=== PATIENT | female | born 1980 | race Caucasian/White ===

== ENCOUNTER 2018-06-10 14:46 | Emergency (ER) | payer BC ==
[~2018-06-10] VITALS: Ht 162.6 cm; Wt 55.0 kg
[2018-06-10] MEDS ORDERED: SODIUM CHLORIDE 0.9% 1,000 ML IV ONE (15:15)
[2018-06-10 15:52] LABS: BASOPHILS % 0.6 % (0.0-2.0); EOSINOPHILS % 1.4 % (0.0-5.0); HEMATOCRIT. 38.5 % (36.0-48.0); HEMOGLOBIN. 12.7 g/dL (12.0-16.0); LYMPHOCYTES % 33.5 % (20.0-50.0); MEAN CORPUSCULAR HEMOGLOBIN 29.7 pg (28.0-32.0); MEAN CORPUSCULAR VOLUME 89.9 fL (81.0-99.0); MEAN PLATELET VOLUME 9.9 fl (7.4-10.4); MONOCYTES % 4.9 % (2.0-8.0); NEUTROPHILS % 59.6 % (40.0-76.0); PLATELET 169 x1000/uL (130-400); RED BLOOD CELL COUNT 4.28 mill/uL (4.2-5.4); RED CELL DISTRIBUTION WIDTH 13.4 % (11.6-14.6)
[2018-06-10 15:57] LABS: CHLORIDE 106 mEq/L (98-107)
[2018-06-10 16:00] VITALS: BP 119/70
[2018-06-10 16:01] LABS: ETHANOL BLOOD < 10 mg/dL
[2018-06-10 16:16] LABS: HCG SCREEN NEGATIVE
== END 2018-06-10 16:20 | disposition left against medical advice (07) ==
LOC: ER 14:46
DX: R55 Syncope and collapse (principal); F12.10 Cannabis abuse, uncomplicated; I10 Essential (primary) hypertension; I67.1 Cerebral aneurysm, nonruptured
CPT/HCPCS: 36415; 80053; 80320; 84703; 85025; 93005; 99284; J7030; G0480